=== PATIENT | male | born 1955 | race Caucasian/White ===

== ENCOUNTER 2021-08-15 17:11 | Inpatient (IN) | payer MEDICARE, SELFPAY ==
[2021-08-15] VITALS (8 sets, daily range): BP systolic 137–168; BP diastolic 65–77; PULSE 64–74; RESP 15–20; TEMP 36.9–37.2; O2SAT 87–94; BMI 33.2; BMI 39.6
--- NOTE | 2021-08-15 17:14 | NURSING ---
NO OLD EKGS
--- NOTE | 2021-08-15 17:32 | EKG12_ITS ---
Test Reason : CP Blood Pressure : / mmHG Vent. Rate : 073 BPM Atrial Rate : 073 BPM P-R Int : 146 ms QRS Dur : 096 ms QT Int : 394 ms P-R-T Axes : 047 094 037 degrees QTc Int : 434 ms Normal sinus rhythm Normal ECG Confirmed by ERNA ZENG MD ([id number]), web content editor DOYLE MULLIGAN ([id number]) on 08/16/2021 11:46:58 AM Referred By: JANET Confirmed By:ERNA ZENG MD
--- NOTE | 2021-08-15 17:35 | EDS_ITS ---
HPI <NEGRO Redd - Last Filed: 08/15/21 19:27> History of Present Illness Chief Complaint: Chest Pain Narrative Narrative: Patient is a 65-year-old male with history of COPD, CAD who smokes 1 pack/day presents to the emergency department with chest tightness, difficulty breathing. Patient states that he was outside all day today, and throughout the day, he developed midsternal chest pressure, he states that he felt short of breath, had bilateral arm tingling and is here for evaluation. Patient states that he uses an inhaler when he feels like this however did not work today. Patient denies any fevers or chills. Patient is vaccinated for COVID-19 as well as influenza. Patient denies any recent fever or chills. Patient denies any history of PE, DVT, denies any recent trips. PFSH <NEGRO Redd - Last Filed: 08/15/21 19:27> PFSH Medical History COPD (chronic obstructive pulmonary disease) Coronary artery disease CPAP (continuous positive airway pressure) dependence Sleep apnea Smoker Home Medications albuterol sulfate 2 puff INHALATION Q4H PRN PRN 08/15/21 [History Last Taken 08/15/21] [id number] [Trelegy Ellipta] 1 ea INHALATION DAILY 08/15/21 [History Last Taken 08/15/21] Allergy/AdvReac Type Severity Reaction Status Date / Time No Known Allergies Allergy Verified 08/15/21 17:12 Family History Other Diabetes Heart disease Surgical History History of coronary artery stent placement Social History Smoking Status: Heavy Smoker (>10/day) ROS <NEGRO Redd - Last Filed: 08/15/21 19:27> ROS ED ROS Narrative Constitutional: Negative for fever, chills, weight loss, weakness Eyes: Negative for vision loss, vision change, double vision ENT: Negative for any sore throat, ear pain, congestion Cardiovascular: Negative for any palpitations, racing heartbeat. Positive for chest pain, chest pressure Respiratory: Negative for any cough, sputum production, hemoptysis.positive for shortness of breath, shortness of breath on exertion, orthopnea Gastrointestinal: Negative for any abdominal pain, nausea, vomiting, diarrhea, constipation, blood in stool, blood in vomit : Negative for any urinary frequency, incontinence, dysuria, retention, blood in urine Muscle skeletal: Negative for any muscle joint pain, stiffness, myalgias, arthralgias, neck pain, back pain Neurological: Negative for any headache, dizziness, syncope, numbness or tingling Skin: Negative for any rashes, lumps, itching, abrasions, lacerations Psychiatric: Negative for any depression, anxiety, stress, suicidal ideation, homicidal ideation Hematologic: Negative for any easy bruising, excessive bruising, easy bleeding Allergies: Negative for any eczema, hives, rash EXAM <NEGRO Redd - Last Filed: 08/15/21 19:27> Physical Exam Narrative Exam Narrative: Vital signs reviewed. Patient on room air is 87%, patient is tachypneic, patient does appear to be in mild respiratory distress. HEET: Head normocephalic atraumatic, TMs clear bilaterally. Posterior pharynx is clear, moist mucous membranes. Nares clear bilaterally. Neck: Supple with no lymphadenopathy or tenderness. No signs of meningismus, negative jolt sign. Cardiac: Regular rate and rhythm no murmurs gallops or rubs, equal peripheral pulses bilaterally. Respiratory: Lungs show bilateral expiratory wheezes, diminished breath sounds in the bases.. No chest tenderness. Abdomen: Soft, nontender, nondistended. No abdominal bruit or pulsatile masses. No hepatosplenomegaly Extremities: Patient has bilateral lower leg edema however he states this is chronic., no signs of gross trauma or deformity. Active full range of motion of all extremities. Neuro: Cranial nerves II through XII intact, no focal neurological deficits. Skin: Clean dry and intact with no rash, purpura, petechiae, vesicles or pustules. Backslash flank: No CVA tenderness, no midline spinal tenderness, no deformity. Psych: Normal mood and affect. No SI, HI or acute psychosis. Const Vital Signs: 08/15/21 17:13 08/15/21 17:26 08/15/21 17:28 Temperature 98.9 F Temperature Source Temporal Pulse Rate 72 Respiratory Rate 20 H Respiratory Effort Short of Breath Respiratory Pattern Blood Pressure 168/76 H Blood Pressure Mean 106 Pulse Ox 88 92 Oxygen Delivery Method Room Air Nasal Cannula Oxygen Flow Rate (L/min) 2 08/15/21 17:30 08/15/21 17:40 Temperature Temperature Source Pulse Rate 74 Respiratory Rate 15 Respiratory Effort Respiratory Pattern Normal Blood Pressure Blood Pressure Mean Pulse Ox 90 Oxygen Delivery Method Nasal Cannula Oxygen Flow Rate (L/min) 3 Positive well nourished, well developed and obese General Appearance ED: well developed Nutritional Appearance: obese <Ulysses Collazo MD - Last Filed: 08/15/21 22:14> Physical Exam Const Vital Signs: 08/15/21 17:13 08/15/21 17:26 08/15/21 17:28 Temperature 98.9 F Temperature Source Temporal Pulse Rate 72 Respiratory Rate 20 H Respiratory Effort Short of Breath Respiratory Pattern Blood Pressure 168/76 H Blood Pressure Mean 106 Pulse Ox 88 92 Oxygen Delivery Method Room Air Nasal Cannula Oxygen Flow Rate (L/min) 2 08/15/21 17:30 08/15/21 17:40 Temperature Temperature Source Pulse Rate 74 Respiratory Rate 15 Respiratory Effort Respiratory Pattern Normal Blood Pressure Blood Pressure Mean Pulse Ox 90 Oxygen Delivery Method Nasal Cannula Oxygen Flow Rate (L/min) 3 MDM <NEGRO Redd - Last Filed: 08/15/21 19:27> MDM MDM Narrative Medical decision making narrative: Patient presents the emergency department in mild respiratory distress, patient is tachypneic, 86% on room air. Patient physical examination is consistent with a COPD exacerbation. Patient did receive a cardiac/pulmonary work-up.Patient's CBC was unremarkable, chemistries were unremarkable, patient's proBNP was negative at 64 with a negative troponin of 14. Patient is negative for any influenza or COVID-19. Twelve-lead EKG was unremarkable. Not believe the patient is having acute cardiac event. Patient x-ray shows mild vascular congestion with interstitial edema, asymmetric parenchymal consolidation of the medial right lower lobe atelectasis versus localized edema versus pneumonia. Due to the patient not having any elevated white count, fever, cough, I do not believe that this is pneumonia. I believe the patient is suffering from a COPD exacerbation, hypoxia. Patient did receive IV steroids as well as aerosol treatments. Patient states that this helped, patient states that is easier for breathing. Patient at rest however still on room air is under 88%. Patient is tolerating 3 L of nasal cannula well. Patient will need to be admitted to hospital for COPD exacerbation Lab Data Attestation: I reviewed the patient's lab results. Labs: Laboratory Results - last 24 hr 08/15/21 08/15/21 08/15/21 17:40 17:40 17:40 WBC 9.3 RBC 5.89 Hgb 17.7 H Hct 55.7 H MCV 94.6 H MCH 30.1 MCHC 31.8 L RDW Std Deviation 49.1 H RDW Coeff of Fuentes 14.1 Plt Count 192 MPV 9.1 Immature Gran % (Auto) 0.400 Neut % (Auto) 70.8 H Lymph % (Auto) 16.4 L [place] % (Auto) 8.9 Eos % (Auto) 3.3 Baso % (Auto) 0.2 Absolute Neuts (auto) 6.6 Absolute Lymphs (auto) 1.53 Nucleated RBC % 0 Sodium 135 L Potassium 4.2 Chloride 102 Carbon Dioxide 29.0 Anion Gap 4 L BUN 12 Creatinine 0.92 Estim Creat Clear Calc 78.98 Est GFR (MDRD) Af Amer 105 Est GFR (MDRD) Non-Af 87 BUN/Creatinine Ratio 13.0 Glucose 102 Calcium 9.1 Troponin I High Sens 14 B-Natriuretic Peptide 64.8 Radiography Chest X-Ray - ED: 1 View Diagnostic Testing: Clinical Impression(s) from Imaging Studies Chest X-Ray 08/15/21 17:55 IMPRESSION: 1. Mild vascular congestion with interstitial edema, possible CHF. 2. Asymmetric parenchymal consolidation of the medial right lower lobe, atelectasis versus localized edema versus pneumonia. Electronically Signed: Gil Saunders MD ([place]) at 18:17 EDT , EKG Normal sinus rhythm: Comments: Normal sinus rhythm, rate of 73 bpm, MD interval 146 ms, QRS duration 96 ms, no acute ST elevation, no acute infarct noted. <Ulysses Collazo MD - Last Filed: 08/15/21 22:14> [facility] MDM Narrative Medical decision making narrative: I have personally performed a face to face assessment of the patient and have reviewed the RAFAEL Note. I performed a substantive portion of the visit including all aspects of the following. My mahoney findings include: History is [chest tightness with shortness of breath, history of COPD, smoker] Exam is [afebrile. Vital signs noted. Regular rate and rhythm. Diminished breath sounds bilateral bases with occasional expiratory wheeze.] Medical Decision Making [aerosol treatments, steroids, check labs. Chest x-ray interpreted by myself shows COPD. Given hypoxia, admit.] Other additions or changes: [None] Lab Data Attestation: I reviewed the patient's lab results. Labs: Laboratory Results - last 24 hr 08/15/21 08/15/21 08/15/21 17:40 17:40 17:40 WBC 9.3 RBC 5.89 Hgb 17.7 H Hct 55.7 H MCV 94.6 H MCH 30.1 MCHC 31.8 L RDW Std Deviation 49.1 H RDW Coeff of Fuentes 14.1 Plt Count 192 MPV 9.1 Immature Gran % (Auto) 0.400 Neut % (Auto) 70.8 H Lymph % (Auto) 16.4 L [place] % (Auto) 8.9 Eos % (Auto) 3.3 Baso % (Auto) 0.2 Absolute Neuts (auto) 6.6 Absolute Lymphs (auto) 1.53 Nucleated RBC % 0 Sodium 135 L Potassium 4.2 Chloride 102 Carbon Dioxide 29.0 Anion Gap 4 L BUN 12 Creatinine 0.92 Estim Creat Clear Calc 78.98 Est GFR (MDRD) Af Amer 105 Est GFR (MDRD) Non-Af 87 BUN/Creatinine Ratio 13.0 Glucose 102 Calcium 9.1 Troponin I High Sens 14 B-Natriuretic Peptide 64.8 Radiography Diagnostic Testing: Clinical Impression(s) from Imaging Studies Chest X-Ray 08/15/21 17:55 IMPRESSION: 1. Mild vascular congestion with interstitial edema, possible CHF. 2. Asymmetric parenchymal consolidation of the medial right lower lobe, atelectasis versus localized edema versus pneumonia. Electronically Signed: Gil Saunders MD ([place]) at 18:17 EDT , Discharge Plan Dx/Rx/DC Orders Clinical Impression: Hypoxia, Acute exacerbation of chronic obstructive pulmonary disease Disposition Disposition: Acute Care Hospital [facility] Discharge Date/Time: 08/15/21 20:18
[2021-08-15] MEDS: Ipratropium/Albuterol Sulfate 3 ML AMPUL.NEB INHALATION (17:37)
[2021-08-15] MEDS: Albuterol 2.5 MG/3 ML VIAL.NEB. INHALATION ×2 (17:38)
[2021-08-15] MEDS: MethylPREDNISolone 125 MG/2 ML Vial IV (17:47)
[2021-08-15 17:49] LABS: Absolute Lymphocyte Count 1.53 X10^3/uL (0.83-4.51); Absolute Neutrophil Count 6.6 X10^3/uL (2.0-7.7); Basophil# 0.02 X10^3/uL; Basophil% 0.2 % (0-1); Eosinophil# 0.31 X10^3/uL; Eosinophils% 3.3 % (0-5); Hemoglobin 17.7 g/dL (13.0-16.5); Lymphocyte # 1.53 X10^3/ul (0.83-4.51); Lymphocyte % 16.4 % (19-41); Mean Corp Hgb Conc 31.8 g/dL (32-36); Mean Corpuscular Hgb 30.1 pg (27.0-32.0); Mean Corpuscular Volume 94.6 fL (80-94); Mean Platelet Vol. 9.1 fl (6.2-12.0); Monocyte# 0.83 X10^3/uL; Monocyte% 8.9 % (0-10); NRBC Flagged by Analyzer 0 % (0-5); Neutrophil # 6.58 X10^3/uL (2.7-7.7); Neutrophil % 70.8 % (47-70); Platelet Count 192 K/mm3 (150-450); RBC Distribution Width CV 14.1 % (11.6-14.6); RBC Distribution Width SD 49.1 fl (35.1-43.9); Red Blood Count 5.89 M/mm3 (4.6-6.2); White Blood Count 9.3 K/mm3 (4.4-11.0)
--- NOTE | 2021-08-15 17:55 | RAD_ITS ---
STUDY: X-RAY CHEST REASON FOR EXAM: Male, 65 years old. shortness of breath TECHNIQUE: AP COMPARISON: None. FINDINGS: Coarsened interstitial lung markings bilaterally asymmetric parenchymal opacity of the medial right lower lobe. There is no demonstrated pleural abnormality. There is mild cardiac enlargement. Normal mediastinum and liyah. Mild central pulmonary vascular congestion. Normal visualized aortic arch and descending thoracic aorta. No acute bony process. There is no demonstrated abnormality of the visualized soft tissue structures of the upper abdomen. RAD/Chest 1 View (Portable) IMPRESSION: 1. Mild vascular congestion with interstitial edema, possible CHF. 2. Asymmetric parenchymal consolidation of the medial right lower lobe, atelectasis versus localized edema versus pneumonia. Electronically Signed: Gil Saunders MD ([place]oks) at 18:17 EDT ,
[2021-08-15 18:04] LABS: Anion Gap 4 (5-15); BUN 12 mg/dL (7-18); Calcium,Total 9.1 mg/dL (8.5-10.1); Chloride 102 mmol/L (98-107); Creatinine, Serum 0.92 mg/dL (0.70-1.30); EST Glomerular Filtration Rate 87 mL/min (>60); Est Glom Filt Rate - Afr Amer 105 mL/min (>60); Estimated Creatinine Clearance 78.98 ml/min; Glucose 102 mg/dL (74-106); Potassium 4.2 mmol/L (3.5-5.1); Sodium Level 135 mmol/L (136-145); Troponin-I HS 14 pg/mL (3.0-78.0)
[2021-08-15 18:27] LABS: Hematocrit 55.7 % (40-54)
[2021-08-15 18:50] LABS: BNP,B-Type NATRIURETIC PEPTIDE 64.8 pg/mL (0-100)
--- NOTE | 2021-08-15 19:34 | PCM.HP.STD ---
HPI - General General Date of Admission: 08/15/21 HPI Narrative KHURRAM MEJIA, is a 65 M with a significant history of CAD status post 3 stents placed about 4 years ago; COPD; obstructive sleep apnea on home CPAP; tobacco abuse who presents to the emergency department with 2-day history of progressive worsening shortness of breath. His shortness of breath increased with exertion. Associated with symptom is some wheezes; and productive cough. His productive cough is occasionally clear and occasionally it is yellow. His secretions are thicker than baseline. He reports some chest pain with coughing. Further he reports bilateral upper extremities numbness. He was outside all day on the day of presentation and he thinks that might have contributed to his symptoms. He reports and orthopnea and proximal nocturnal dyspnea. PFSH Medical History COPD (chronic obstructive pulmonary disease) Coronary artery disease CPAP (continuous positive airway pressure) dependence Sleep apnea Smoker Home Medications albuterol sulfate 2 puff INHALATION Q4H PRN PRN 08/15/21 [History Last Taken 08/15/21] [id number] [Trelegy Ellipta] 1 ea INHALATION DAILY 08/15/21 [History Last Taken 08/15/21] Allergy/AdvReac Type Severity Reaction Status Date / Time No Known Allergies Allergy Verified 08/15/21 17:12 Family History Other Diabetes Heart disease Surgical History History of coronary artery stent placement Social History Smoking Status: Heavy Smoker (>10/day) ROS ROS Narrative Constitutional: Denies fever, chills, anorexia and change in weight Eyes: Denies blurry vision, change in eye color, change in vision, discharge from eye(s), double vision, erythema, eye pain, loss of vision or other HEENT: Denies abnormal hearing, dysphagia, ear pain, epistaxis, headache(s), hearing loss, nasal congestion, nasal discharge, post nasal drip, sinus pressure, sore throat or other Cardiovascular: Reports chest pain with coughing. Denies palpitations. Reports orthopnea and paroxysmal nocturnal dyspnea Respiratory/Chest: Report cough, excessive phlegm production, shortness of breath with exertion and wheezing Gastrointestinal: Denies abdominal pain, coffee ground emesis, constipation, diarrhea, dyspepsia, hematemesis, hematochezia, loose stools, melena, nausea, vomiting or other Genitourinary: Denies burning urination, difficulty urinating, dysuria, hematuria, nocturia, urinary frequency, urinary hesitancy, urinary incontinence, urinary urgency or other Musculoskeletal: Denies arthralgias, back pain, joint pain, joint stiffness, joint swelling, myalgias, neck pain or other Neurologic: Denies abnormal gait, abnormal speech, confusion, disequilibrium, dizziness, focal weakness, numbness, paresthesias, seizure-like activity, seizures, syncope, tingling, tremor(s) or other Psychiatric: Denies anxiety, depression, homicidal ideation, suicidal ideation or other Endocrinology: Denies change in body appearance, cold intolerance, excessive sweating, heat intolerance, polydipsia, polyuria or other Hematologic/Lymphatic: Denies anemia, easy bleeding, easy bruising, lymphadenopathy or other Integumentary: Denies rashes Allergic/Immunologic: Denies rhinitis, hives, eczema, or other Vital Signs Vital Signs Vital Signs: 08/15/21 17:13 08/15/21 17:26 08/15/21 17:28 Temperature 98.9 F Temperature Source Temporal Pulse Rate 72 Respiratory Rate 20 H Respiratory Effort Short of Breath Respiratory Pattern Blood Pressure 168/76 H Blood Pressure Mean 106 Pulse Ox 88 92 Oxygen Delivery Method Room Air Nasal Cannula Oxygen Flow Rate (L/min) 2 08/15/21 17:30 08/15/21 17:40 08/15/21 19:26 Temperature 98.6 F Temperature Source Temporal Pulse Rate 74 64 Respiratory Rate 15 19 H Respiratory Effort Respiratory Pattern Normal Blood Pressure 147/77 H Blood Pressure Mean 100 Pulse Ox 90 91 Oxygen Delivery Method Nasal Cannula Nasal Cannula Oxygen Flow Rate (L/min) 3 3 Weight Weight: 102.058 kg Body Mass Index (BMI) 33.2 Physical Exam Narrative Physical exam: General: Well-nourished, well-developed. Head: Normocephalic, atraumatic, no tenderness Eyes: Vision is grossly intact. EOMI ENT, no trauma, moist mucous membranes, no rhinorrhea Neck: Nontender, full range of motion, no spinal tenderness, deformities, step-off CVS: Regular rate and rhythm. S1-S2 present. No murmur, gallop or rub. Respiratory : Increased work of breathing. Diminished. Abdomen: Soft, nontender, nondistended, normal bowel sounds, no masses : Deferred Back: Nontender, no CVA tenderness, no midline spinal tenderness, deformities, step-offs Extremities: Bilateral feet edema. Nontender full range of motion, no trauma Skin: Normal color, no trauma, abrasions Neuro: Alert, oriented, cranial nerves II through XII grossly intact. Psychiatry: Normal mood. Normal affect. Not depressed. Not anxious. Results Lab / Micro Data Result Diagrams: 08/15/21 17:40 08/15/21 17:40 Labs: Laboratory Results - last 24 hr 08/15/21 17:40: WBC 9.3, RBC 5.89, Hgb 17.7 H, Hct 55.7 H, MCV 94.6 H, MCH 30.1, MCHC 31.8 L, RDW Std Deviation 49.1 H, RDW Coeff of Fuentes 14.1, Plt Count 192, MPV 9.1, Immature Gran % (Auto) 0.400, Neut % (Auto) 70.8 H, Lymph % (Auto) 16.4 L, [place] % (Auto) 8.9, Eos % (Auto) 3.3, Baso % (Auto) 0.2, Absolute Neuts (auto) 6.6, Absolute Lymphs (auto) 1.53, Nucleated RBC % 0 08/15/21 17:40: Sodium 135 L, Potassium 4.2, Chloride 102, Carbon Dioxide 29.0, Anion Gap 4 L, BUN 12, Creatinine 0.92, Estim Creat Clear Calc 78.98, Est GFR (MDRD) Af Amer 105, Est GFR (MDRD) Non-Af 87, BUN/Creatinine Ratio 13.0, Glucose 102, Calcium 9.1, Troponin I High Sens 14 08/15/21 17:40: B-Natriuretic Peptide 64.8 Micro: Microbiology 08/15/21 17:50 Nasal Secretion SARS-CoV-2 & FLU Antigen (Rapid) - Final Radiology Impression Chest X-Ray 08/15/21 17:55 IMPRESSION: 1. Mild vascular congestion with interstitial edema, possible CHF. 2. Asymmetric parenchymal consolidation of the medial right lower lobe, atelectasis versus localized edema versus pneumonia. Electronically Signed: Gil Saunders MD ([place]) at 18:17 EDT , Assessment & Plan Assessment/Plan (1) Acute exacerbation of chronic obstructive pulmonary disease: (2) Hypoxia: PLAN: Acute excerbation of COPD CXR was visualized and independent interpreted. Chest x-ray with some vascular congestion and creatinine/consolidation of moderate right lower lobe. I agree with radiologist interpretation. Review of labs showed normal BNP of 64.8. EKG independently reviewed showed sinus rhythm with no ST or T wave abnormalities On home Trelegy. Scheduled DuoNeb and as needed albuterol ordered. Solu-Medrol IV received at emergency department and continued. Azithromycin p.o. Continue supplemental oxygenation started from the ED CBC showed normal white counts; and with erythrocytosis. Erythrocytosis likely secondary to history of hypoxia Monitor BMP and CBC Initial high sensitive troponin was negative. Trend troponin. DVT prophylaxis: Subcutaneous Lovenox ordered. Charges/Coding Visit Charges Inpatient E&M: 23711 Init Hosp L3
[2021-08-15] MEDS: Azithromycin 250 MG Tablet 500 MG PO (21:59)
[2021-08-15 22:31] LABS: Troponin-I HS 8 pg/mL (3.0-78.0)
[2021-08-16] VITALS (12 sets, daily range): BP systolic 120–143; BP diastolic 60–67; PULSE 61–103; RESP 18–20; TEMP 36.5–37.1; O2SAT 88–94
[2021-08-16 00:31] LABS: Troponin-I HS 9 pg/mL (3.0-78.0)
[2021-08-16 04:09] LABS: Absolute Lymphocyte Count 0.47 X10^3/uL (0.83-4.51); Absolute Neutrophil Count 4.7 X10^3/uL (2.0-7.7); Hemoglobin 17.6 g/dL (13.0-16.5); Lymphocyte # 0.47 X10^3/ul (0.83-4.51); Lymphocyte % 9.1 % (19-41); Mean Corp Hgb Conc 31.4 g/dL (32-36); Mean Corpuscular Hgb 30.2 pg (27.0-32.0); Mean Corpuscular Volume 96.2 fL (80-94); Mean Platelet Vol. 9.3 fl (6.2-12.0); Monocyte# 0.03 X10^3/uL; Monocyte% 0.6 % (0-10); NRBC Flagged by Analyzer 0 % (0-5); Neutrophil # 4.68 X10^3/uL (2.7-7.7); Neutrophil % 90.1 % (47-70); POSITIVE DIFFERENTIAL YES; Platelet Count 172 K/mm3 (150-450); RBC Distribution Width CV 14.4 % (11.6-14.6); RBC Distribution Width SD 51.2 fl (35.1-43.9); Red Blood Count 5.83 M/mm3 (4.6-6.2); White Blood Count 5.2 K/mm3 (4.4-11.0)
[2021-08-16 04:14] LABS: Differential Indicated SCAN CRITERIA MET; Hematocrit 56.1 % (40-54)
[2021-08-16 04:33] LABS: Troponin-I HS 10 pg/mL (3.0-78.0)
[2021-08-16 04:45] LABS: Anion Gap 6 (5-15); BUN 17 mg/dL (7-18); BUN/Creat Ratio 18.1 RATIO (10-20); Chloride 103 mmol/L (98-107); Creatinine, Serum 0.94 mg/dL (0.70-1.30); EST Glomerular Filtration Rate 85 mL/min (>60); Est Glom Filt Rate - Afr Amer 103 mL/min (>60); Glucose 230 mg/dL (74-106); Potassium 4.5 mmol/L (3.5-5.1); Sodium Level 137 mmol/L (136-145)
[2021-08-16 05:10] LABS: Differential Comment SCANNED
[2021-08-16] MEDS: Ipratropium/Albuterol Sulfate 3 ML AMPUL.NEB INHALATION ×4 (06:50→19:54)
[2021-08-16] MEDS: Azithromycin 250 MG Tablet 500 MG PO (10:24)
[2021-08-16] MEDS: Enoxaparin 40 MG/0.4 ML Syringe SC (10:24)
[2021-08-16] MEDS: Aspirin 81 MG TAB.CHEW PO (10:24)
--- NOTE | 2021-08-16 10:37 | PN.HOSP_ITS ---
Subjective Subjective Follow-up on Acute COPD exacerbation: Patient was seen and examined. Patient complains of feeling itchy around the arms. This happens to be at the areas where blood pressure cuff was applied. Unclear if it is related to some cleaning agents over the blood pressure cuff. This is on both arms. He has developed some wheals over his back and bilateral upper extremity Objective Data Objective Data Vital Signs: Vital Signs Temp Pulse Resp BP Pulse Ox 98.8 F 61 20 H 143/67 H 94 08/16/21 03:15 08/16/21 08:02 08/16/21 06:50 08/16/21 03:15 08/16/21 06:50 Oxygen Flow Rate (L/min) 3 Oxygen Delivery Method Nasal Cannula Weight: 121.8 kg Body Mass Index (BMI) 39.6 Intake & Output: Intake and Output for Last 24 Hours 08/14/21 08/15/21 08/16/21 23:59 23:59 23:59 Intake Total 300 / 300 Balance 300 / 300 Lab / Micro Data Result Diagrams: 08/16/21 03:42 08/16/21 03:42 Labs: Laboratory Results - last 24 hr 08/15/21 17:40: WBC 9.3, RBC 5.89, Hgb 17.7 H, Hct 55.7 H, MCV 94.6 H, MCH 30.1, MCHC 31.8 L, RDW Std Deviation 49.1 H, RDW Coeff of Fuentes 14.1, Plt Count 192, MPV 9.1, Immature Gran % (Auto) 0.400, Neut % (Auto) 70.8 H, Lymph % (Auto) 16.4 L, [place] % (Auto) 8.9, Eos % (Auto) 3.3, Baso % (Auto) 0.2, Absolute Neuts (auto) 6. 6, Absolute Lymphs (auto) 1.53, Nucleated RBC % 0 08/15/21 17:40: Sodium 135 L, Potassium 4.2, Chloride 102, Carbon Dioxide 29.0, Anion Gap 4 L, BUN 12, Creatinine 0.92, Estim Creat Clear Calc 78.98, Est GFR (MDRD) Af Amer 105, Est GFR (MDRD) Non-Af 87, BUN/Creatinine Ratio 13.0, Glucose 102, Calcium 9.1, Troponin I High Sens 14 08/15/21 17:40: B-Natriuretic Peptide 64.8 08/15/21 21:35: Troponin I High Sens 8 08/15/21 23:49: Troponin I High Sens 9 08/16/21 03:42: WBC 5.2, RBC 5.83, Hgb 17.6 H, Hct 56.1 H, MCV 96.2 H, MCH 30.2, MCHC 31.4 L, RDW Std Deviation 51.2 H, RDW Coeff of Fuentes 14.4, Plt Count 172, MPV 9.3, Immature Gran % (Auto) 0.200, Neut % (Auto) 90.1 H, Lymph % (Auto) 9.1 L, [place] % (Auto) 0.6, Eos % (Auto) 0.0, Baso % (Auto) 0.0, Absolute Neuts (auto) 4.7, Absolute Lymphs (auto) 0.47 L, Nucleated RBC % 0, Differential Comment SCANNED 08/16/21 03:42: Sodium 137, Potassium 4.5, Chloride 103, Carbon Dioxide 28.0, Anion Gap 6, BUN 17, Creatinine 0.94, Estim Creat Clear Calc 77.30, Est GFR (MDRD) Af Amer 103, Est GFR (MDRD) Non-Af 85, BUN/Creatinine Ratio 18.1, Glucose 230 H, Calcium 9.0 08/16/21 03:42: Troponin I High Sens 10 Micro: Microbiology 08/15/21 17:50 Nasal Secretion SARS-CoV-2 & FLU Antigen (Rapid) - Final Radiography Diagnostic Testing: Radiology Impression Chest X-Ray 08/15/21 17:55 IMPRESSION: 1. Mild vascular congestion with interstitial edema, possible CHF. 2. Asymmetric parenchymal consolidation of the medial right lower lobe, atelectasis versus localized edema versus pneumonia. Electronically Signed: Gil Saunders MD ([place]) at 18:17 EDT , Physical Exam Narrative General: Alert, Oriented x3, cooperative, on 3L oxygen HEENT: Atraumatic, PERRLA, EOMI, Normocephalic Oral: Moist Mucosa Neck: Supple Lungs: Diminished to auscultation Cardiovascular: HS I +II, no murmurs Abdomen: Bowel Sounds Present, Soft, Non Tender, Non-Distended, No Hepato- splenomegaly Extremities: No edema Skin: No rashes Neurological: Cranial nerves II-XII grossly intact, Neuro grossly intact Psych/Mental Status: Normal Affect, Appropriate Assessment & Plan Assessment/Plan (1) Acute exacerbation of chronic obstructive pulmonary disease: (2) Hypoxia: PLAN: 1. Acute hypoxia secondary to Acute exacerbation of COPD/probable Acute CHF Patient is on 3 L of oxygen, will continue treatment for the above Chest x-ray showed mild vascular congestion with interstitial and edema, asymmetric parenchymal consolidation of the medial right lower lobe Continue on breathing treatment, IV Solu-Medrol, Lasix, azithromycin Wean off oxygen 2. Acute allergic reaction, unclear inciting agents, Will give Benadryl, hydrocortisone cream, continue Solu-Medrol 3. CAD s/p stents, continue on aspirin, not on statin 4. YON on CPAP 5. Nicotine dependence, on replacement 6. DVT prophylaxis -Lovenox SC. Charges/Coding Visit Charges Inpatient E&M: 78972 Subs Hosp L2
--- NOTE | 2021-08-16 11:00 | CASEMGMT ---
RN JEFFERY COMMUNICATION EQUIPMENT MECHANIC CM to room to meet with patient for initial transition planning/care coordination assessment. JA GIL introduced self and role at [facility]. Pt voices understanding and consents to assessment at this time. Pt sitting up in chair in room in no distress at this time. Pt is A/O at this time and answers all questions appropriately. Care providers, pharmacy, and demographics verified/updated at this time. PCP: Dr Lopez Specialists: Dr Orozco @ [facility]/[place]--cardiology Preferred Pharmacy: [facility] Insurance: [facility] Prescription Benefit: Yes Living Will/HPOA: Has both LW and HPOA, who is his , Emely LNOK: , Emely. 3 living adult children. Pt had another son, but he this past year from [place]. Living Arrangements: Lives w/ and 3 grandchildren (ages 16, 16, and 5) who they have full custody of and they are raising. They live in a one-story home w/6 steps to enter w/rails on one side. Pt states the stairs are difficult but he is able to do them. assists pt w/ADL's (showering and dressing) at times and does most home mgmt tasks. Pt states he often does outside work. Transportation: Pt states drives self and states no transportation concerns at this time. also drives. DME: States has the following DME: rails/grab bars, hand held shower, walker, W/C, hospital bed, and crutches. Pt states he uses the crutches most of the time. Pt also has a pulse ox, CPAP (states got it somewhere in [place]--does not remember name of co). He does not have home O2. Pt was provided with list of DME providers. He states he has no preference. . Pt states no need for further DME at this time. ETOH/Nicotine. Pt states he does not drink. He states he has smoked for about 50 yrs. He was smoking 3 PPD up until about 5/[address] Lopez placed him on pill to help and he is currently down to ~ 1 PPD. He is interested in further information on smoking cessation. Fabrice from CPS made aware. HHC/SNF: No hx of either. Pt wishes to return home and denies wanting HHC. Pt made aware, if he decides he would like HHC in the future, to contact his PCP. He voices understanding. Pt wishes to return home and states has no concerns with going home at time of discharge. CM to follow for home oxygen needs and any further discharge planning/needs. Pt voices no further concerns/needs at this time. Advised pt to ask for CM if any further questions/concerns/needs arise. Voices understanding. PLAN: Home w/spousal support and discharge plans in place. Follow for possible need of Home O2. Clarissa FLORESN RN CM
[2021-08-16] MEDS: Furosemide 40 MG/4 ML Vial IV ×2 (11:07→21:05)
[2021-08-16] MEDS: 0.9% Saline Lock 10 ML Syringe IV ×3 (11:07→21:05)
[2021-08-16] MEDS: DiphenhydrAMINE 25 MG Capsule PO (11:07)
--- NOTE | 2021-08-16 12:03 | CASEMGMT ---
Referred pt to Patient Link as he does not want HHC.
--- NOTE | 2021-08-16 13:06 | ECHOCS_ITS ---
Reason For Study: Dyspnea/SOB Procedure This was a 2D Doppler, Color Flow transthoracic echocardiogram. The study was technically difficult. Contrast injection was performed. Exam performed portable in patient room. Left Ventricle Based upon the 2D echocardiographic and contrast enhanced images obtained there appears to be grossly normal left ventricular size, wall motion, and systolic function. The estimated ejection fraction is 65 %. Diastolic function is indeterminate. Right Ventricle Based upon the 2D echocardiographic images obtained there appears to be grossly normal right ventricular size and systolic function. Atria The left atrium is mildly enlarged. Normal right atrium. No doppler evidence for ASD. Mitral Valve There is no mitral annular calcification. Normal mitral valve. Trivial mitral valve insufficiency. Tricuspid Valve Normal tricuspid valve. Trivial tricuspid valve insufficiency. Unable to estimate RV systolic pressure/pulmonary artery pressure due to technically difficult study. Aortic Valve The aortic valve leaflets are not well visualized, however, based upon the 2D echocardiographic images obtained there appears to be moderate focal calcification and partial restriction. Mild to moderate aortic stenosis. Pulmonic Valve The pulmonic valve is not well visualized. Great Vessels The aortic root is not well visualized. Pericardium/Pleural No pericardial effusion. Medication Diluted definity 2ml given slow IV push to enhance endocardial definition. MMode/2D Measurements & Calculations LVIDd: 5.8 cm IVSd: 1.2 cm LVOT diam: 2.0 cm LVIDs: 4.4 cm LVPWd: 1.1 cm FS: 24.4 % LVOT area: 3.2 cm2 ACS: 1.0 cm LAV(MOD-sp4): 66.0 ml LA A4 area: 23.4 cm2 LA dimension: 4.2 cm Time Measurements MV dec time: 0.28 sec Doppler Measurements & Calculations MV E max sanchez: 128.7 cm/sec Lat Peak E' Sanchez: 11.4 cm/sec Med Peak E' Sanchez: 6.0 cm/sec MV A max sanchez: 140.2 cm/sec E/E' lat: 11.3 E/E' med: 21.4 MV E/A: 0.92 MV V2 max: 154.1 cm/sec MV P1/2t max sanchez: 131.9 cm/sec Ao V2 max: 339.6 cm/sec MV max P.5 mmHg MV P1/2t: 99.4 msec Ao max P.1 mmHg MV V2 mean: 82.0 cm/sec Ao V2 mean: 230.9 cm/sec MV mean P.2 mmHg MV dec slope: 388.9 cm/sec2 Ao mean P.5 mmHg MV V2 VTI: 45.5 cm MVA(P1/2t): 2.2 cm2 Ao V2 VTI: 71.1 cm MVA(VTI): 2.2 cm2 ITALO(I,D): 1.4 cm2 ITALO(V,D): 1.2 cm2 LV V1 max: 125.5 cm/sec SV(LVOT): 101.3 ml PA V2 max: 92.5 cm/sec LV V1 max P.3 mmHg LV V1 mean P.1 mmHg LV V1 mean: 80.4 cm/sec LV V1 VTI: 31.3 cm ECHO/Echo Complete W/ Contrast Interpretation Summary The study was technically difficult. Contrast injection was performed. Based upon the 2D echocardiographic and contrast enhanced images obtained there appears to be grossly normal left ventricular size, wall motion, and systolic function. The estimated ejection fraction is 65 %. The left atrium is mildly enlarged. Trivial mitral valve insufficiency. Trivial tricuspid valve insufficiency. The aortic valve leaflets are not well visualized, however, based upon the 2D e chocardiographic images obtained there appears to be moderate focal calcification and partial re striction. Mild to moderate aortic stenosis. Unable to estimate RV systolic pressure/pulmonary artery pressure due to techni agustin difficult study. Diastolic function is indeterminate. Ordering Physician: Candice Steele Referring Physician: donnell PCP noted Performed By: Jaison Hsieh RCS
--- NOTE | 2021-08-16 14:15 | NURSING ---
Explained [facility] Patient-link program to pt and he was interested. Consent obtained for the program
[2021-08-16] MEDS: Acetaminophen 325 MG Tablet 650 MG PO (21:09)
[2021-08-17] VITALS (34 sets, daily range): BP systolic 107–165; BP diastolic 56–110; PULSE 59–154; RESP 14–20; TEMP 36.4–36.9; O2SAT 89–98
[2021-08-17] MEDS: 0.9% Saline Lock 10 ML Syringe IV ×2 (06:30→21:19)
[2021-08-17] MEDS: Furosemide 40 MG/4 ML Vial IV ×3 (06:30→21:10)
[2021-08-17 06:33] LABS: Absolute Lymphocyte Count 0.68 X10^3/uL (0.83-4.51); Absolute Neutrophil Count 14.1 X10^3/uL (2.0-7.7); Basophil# 0.02 X10^3/uL; Basophil% 0.1 % (0-1); Hematocrit 54.7 % (40-54); Hemoglobin 17.2 g/dL (13.0-16.5); Lymphocyte # 0.68 X10^3/ul (0.83-4.51); Lymphocyte % 4.3 % (19-41); Mean Corp Hgb Conc 31.4 g/dL (32-36); Mean Corpuscular Hgb 30.3 pg (27.0-32.0); Mean Corpuscular Volume 96.3 fL (80-94); Mean Platelet Vol. 9.4 fl (6.2-12.0); Monocyte# 0.78 X10^3/uL; NRBC Flagged by Analyzer 0 % (0-5); Neutrophil # 14.11 X10^3/uL (2.7-7.7); Neutrophil % 89.8 % (47-70); Platelet Count 187 K/mm3 (150-450); RBC Distribution Width CV 14.5 % (11.6-14.6); RBC Distribution Width SD 51.4 fl (35.1-43.9); Red Blood Count 5.68 M/mm3 (4.6-6.2); White Blood Count 15.7 K/mm3 (4.4-11.0)
[2021-08-17 07:02] LABS: ALB/GLOB Ratio 0.9 RATIO (0.9-2.4); AST(SGOT) 11 U/L (15-37); Albumin, Serum 3.7 g/dL (3.2-5.0); BUN 27 mg/dL (7-18); BUN/Creat Ratio 27.1 RATIO (10-20); Calcium,Total 9.3 mg/dL (8.5-10.1); EST Glomerular Filtration Rate 80 mL/min (>60); Est Glom Filt Rate - Afr Amer 97 mL/min (>60); Estimated Creatinine Clearance 72.66 ml/min; Globulin 3.9 g/dL (2.2-4.2); Glucose 157 mg/dL (74-106); Protein, Total 7.6 g/dL (6.4-8.2)
[2021-08-17 07:03] LABS: Alanine Aminotransfer ALT/SGPT 15 U/L (16-61); Alkaline Phosphatase 57 U/L (45-117); Anion Gap 5 (5-15); Chloride 99 mmol/L (98-107); Potassium 4.6 mmol/L (3.5-5.1); Sodium Level 134 mmol/L (136-145)
[2021-08-17] MEDS: Ipratropium/Albuterol Sulfate 3 ML AMPUL.NEB INHALATION ×2 (07:11→10:56)
--- NOTE | 2021-08-17 07:55 | EKG12_ITS ---
Test Reason : TACHYCARDIA Blood Pressure : / mmHG Vent. Rate : 148 BPM Atrial Rate : 163 BPM P-R Int : 000 ms QRS Dur : 088 ms QT Int : 298 ms P-R-T Axes : 000 083 013 degrees QTc Int : 467 ms Atrial fibrillation Abnormal ECG When compared with ECG of 15-AUG-2021 17:21, Atrial fibrillation has replaced Sinus rhythm Vent. rate has increased BY 75 BPM Confirmed by AZUCENA RODRIGUEZ, ERNA ([id number]), restaurant expeditor DOYLE MULLIGAN ([id number]) on 08/20/2021 6:54:43 AM Referred By: LIDIA Confirmed By:ERNA ZENG MD
--- NOTE | 2021-08-17 07:56 | NURSING ---
pt sitting in chair. had used urinal, has been sitting for approx. 5min. no signs of distress noted. no c/o chest pain. notable tachycardia 140's-150's. cps called for EKG
--- NOTE | 2021-08-17 08:02 | NURSING ---
in chair, denies any chest pain/neck pain/jaw or arm pain. denies SOB, does not feel like having any racing heart or fluttering, denies any dizziness/lightheadedness.
[2021-08-17] MEDS: Azithromycin 250 MG Tablet 500 MG PO (08:10)
[2021-08-17] MEDS: Enoxaparin 40 MG/0.4 ML Syringe SC (08:10)
[2021-08-17] MEDS: Aspirin 81 MG TAB.CHEW PO (08:10)
[2021-08-17] MEDS: Metoprolol Tartrate 5 MG/5 ML Vial IV (08:46)
--- NOTE | 2021-08-17 08:51 | PN.HOSP_ITS ---
Subjective Subjective Follow-up on Acute COPD exacerbation/acute exacerbation of heart failure with preserved EF: Patient was seen and examined. He remains on 3 L of oxygen. He has been tachycardic overnight. Patient stated that he had history of paroxysmal atrial fibrillation. Not on any rate-limiting medications. Objective Data Objective Data Vital Signs: Vital Signs Temp Pulse Resp BP Pulse Ox 97.9 F 154 H 20 H 148/110 H 93 08/17/21 07:54 08/17/21 08:48 08/17/21 07:54 08/17/21 08:48 08/17/21 07:54 Oxygen Flow Rate (L/min) 3 Oxygen Delivery Method Nasal Cannula Weight: 121.8 kg Body Mass Index (BMI) 39.6 Intake & Output: Intake and Output for Last 24 Hours 08/15/21 08/16/21 08/17/21 23:59 23:59 23:59 Intake Total 1200 / 1200 Output Total 400 / 1100 1300 / 1300 Balance 800 / 100 -1300 / -1300 Lab / Micro Data Result Diagrams: 08/17/21 05:30 08/17/21 05:30 Labs: Laboratory Results - last 24 hr 08/17/21 05:30: WBC 15.7 H, RBC 5.68, Hgb 17.2 H, Hct 54.7 H, MCV 96.3 H, MCH 30.3, MCHC 31.4 L, RDW Std Deviation 51.4 H, RDW Coeff of Fuentes 14.5, Plt Count 187, MPV 9.4, Immature Gran % (Auto) 0.800, Neut % (Auto) 89.8 H, Lymph % (Auto) 4.3 L, [place] % (Auto) 5.0, Eos % (Auto) 0.0, Baso % (Auto) 0.1, Absolute Neuts (auto) 14.1 H, Absolute Lymphs (auto) 0.68 L, Nucleated RBC % 0 08/17/21 05:30: Sodium 134 L, Potassium 4.6, Chloride 99, Carbon Dioxide 30.0, Anion Gap 5, BUN 27 H, Creatinine 1.00, Estim Creat Clear Calc 72.66, Est GFR (MDRD) Af Amer 97, Est GFR (MDRD) Non-Af 80, BUN/Creatinine Ratio 27.1 H, Glucose 157 H, Calcium 9.3, Total Bilirubin 0.20, AST 11 L, ALT 15 L, Alkaline Phosphatase 57, Total Protein 7.6, Albumin 3.7, Globulin 3.9, Albumin/Globulin Ratio 0.9 Micro: Microbiology 08/15/21 17:50 Nasal Secretion SARS-CoV-2 & FLU Antigen (Rapid) - Final Radiography Diagnostic Testing: Radiology Impression Echocardiogram 08/16/21 13:06 Interpretation Summary The study was technically difficult. Contrast injection was performed. Based upon the 2D echocardiographic and contrast enhanced images obtained there appears to be grossly normal left ventricular size, wall motion, and systolic function. The estimated ejection fraction is 65 %. The left atrium is mildly enlarged. Trivial mitral valve insufficiency. Trivial tricuspid valve insufficiency. The aortic valve leaflets are not well visualized, however, based upon the 2D echocardiographic images obtained there appears to be moderate focal calcification and partial restriction. Mild to moderate aortic stenosis. Unable to estimate RV systolic pressure/pulmonary artery pressure due to technically difficult study. Diastolic function is indeterminate. Ordering Physician: Candice Steele Referring Physician: no PCP noted Performed By: Jaison Hsieh RCS Physical Exam Narrative General: Alert, Oriented x3, cooperative, on 3L oxygen HEENT: Atraumatic, PERRLA, EOMI, Normocephalic Oral: Moist Mucosa Neck: Supple Lungs: Diminished to auscultation Cardiovascular: HS I +II, tachycardic Abdomen: Bowel Sounds Present, Soft, Non Tender, Non-Distended, No Hepato- splenomegaly Extremities: No edema Skin: No rashes Neurological: Cranial nerves II-XII grossly intact, Neuro grossly intact Psych/Mental Status: Normal Affect, Appropriate Assessment & Plan Assessment/Plan (1) Acute exacerbation of chronic obstructive pulmonary disease: (2) Hypoxia: PLAN: 1. Acute hypoxia secondary to Acute exacerbation of COPD/probable Acute exacerbation of heart failure with preserved EF , EF 65% Patient remains on 3 L of oxygen, Chest x-ray showed mild vascular congestion with interstitial and edema, asymmetric parenchymal consolidation of the medial right lower lobe Continue on breathing treatment, IV Solu-Medrol, Lasix, azithromycin Wean off oxygen 2. Acute A. fib with RVR, patient with reported history of paroxysmal atrial fibrillation 2D echo shows EF of 65%, diastolic dysfunction in the 10 minutes, mildly enlar ged left atrium, mild to moderate aortic stenosis We will give metoprolol IV 5 mg x 1 and start patient on metoprolol 50 mg p.o. twice daily We will switch to therapeutic Lovenox We will transfer to PCU if patient remains tachycardic 3. Acute allergic reaction, unclear inciting agents, improved Continue hydrocortisone cream, continue Solu-Medrol 4. CAD s/p stents, continue on aspirin, not on statin 5. YON on CPAP 6. Nicotine dependence, on replacement 7. DVT prophylaxis -Lovenox SC. Charges/Coding Visit Charges Inpatient E&M: 01387 Subs Hosp L2
[2021-08-17] MEDS: Metoprolol Tartrate 50 MG Tablet PO ×2 (09:30→15:57)
[2021-08-17 09:35] LABS: Thyroid Stim Hormone (TSH) 0.14 uIU/mL (0.358-3.74)
[2021-08-17 11:35] LABS: Free T3 2.3 pg/mL (2.18-3.98); T4 Free Direct 0.78 ng/dL (0.76-1.46)
[2021-08-17] MEDS: Enoxaparin 80 MG/0.8 ML Syringe SC (11:58)
--- NOTE | 2021-08-17 12:42 | NURSING ---
phoned spouse as listed in demographics information- no answer to phone number.
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
[2021-08-17] MEDS: Ipratropium 0.5 MG/2.5 ML SOLUTION INHALATION ×3 (13:31→23:16)
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
--- NOTE | 2021-08-17 16:56 | CM.ED ---
AMAURI called patient's , Ashley and left voice mail to call this display card writer. AMAURI updated Ave, PCU Charge. Amaya KUMAR
--- NOTE | 2021-08-17 17:01 | NURSING ---
1630-CM notified that spouse is stating she is POA and wants to make pt go to a home. He is not coming to my house. Education provided to pt's spouse, spouse stated i can make whatever happen because of the POA. and was not receptive to education. 1700- Received call from Amaya BAUGH who stated she had attempted to call spouse regarding d/c and POA; was unable to reach spouse and left message asking for call back.
--- NOTE | 2021-08-17 17:47 | CASEMGMT ---
Social Work Note AMAURI spoke with Paulina with [facility] CPS and provided CPS referral. Paulina states that she is familiar with pt's family and will call her supervisor in circuit testing. Nori Phan DEVELOPMENT VICE PRESIDENT, CITY SOLICITOR
--- NOTE | 2021-08-17 18:53 | CASEMGMT ---
Social Work Note SW in to speak with pt. SW introduced self and role at [facility]. Pt is alert and orientated, engages appropriately in conversation. Pt states he likes to be called Holt. SW informed pt that it sounds like he will be discharged home tomorrow. Pt states he is leaving tomorrow regardless as he has things he has to do. Pt states that his grandkids want to put in the garden. SW asked pt if he had any concerns with going home and pt states he has none. SW asked pt if there was any safety concerns with him going home and pt states there are none. SW asked pt how his family feels about him coming home and pt states again he is going home tomorrow. SW asked if he has a good relationship with his and pt states he does. Pt denied any additional needs or concerns at this time. Nori Phan METAL FINISH INSPECTOR, RACK MAKER
--- NOTE | 2021-08-17 19:58 | NURSING ---
Handoff report received, assumed care of pt at this time.
[2021-08-17] MEDS: Enoxaparin 120 MG/0.8 ML Syringe SC (21:15)
[2021-08-17] MEDS: Metoprolol Tartrate 100 MG Tablet PO (21:15)
[2021-08-18] VITALS (26 sets, daily range): BP systolic 98–130; BP diastolic 59–87; PULSE 48–125; RESP 14–20; TEMP 36.5–36.8; O2SAT 89–96
[2021-08-18] MEDS: Ipratropium 0.5 MG/2.5 ML SOLUTION INHALATION ×6 (03:52→23:06)
[2021-08-18] MEDS: Furosemide 40 MG/4 ML Vial IV ×2 (05:26→17:31)
[2021-08-18] MEDS: 0.9% Saline Lock 10 ML Syringe IV ×4 (05:27→23:21)
[2021-08-18 06:57] LABS: Absolute Lymphocyte Count 0.74 X10^3/uL (0.83-4.51); Absolute Neutrophil Count 12.9 X10^3/uL (2.0-7.7); Basophil# 0.01 X10^3/uL; Basophil% 0.1 % (0-1); Hemoglobin 17.7 g/dL (13.0-16.5); Lymphocyte # 0.74 X10^3/ul (0.83-4.51); Lymphocyte % 5.1 % (19-41); Mean Corp Hgb Conc 30.8 g/dL (32-36); Mean Corpuscular Hgb 30.5 pg (27.0-32.0); Mean Corpuscular Volume 98.8 fL (80-94); Mean Platelet Vol. 9.7 fl (6.2-12.0); Monocyte# 0.61 X10^3/uL; Monocyte% 4.2 % (0-10); NRBC Flagged by Analyzer 0 % (0-5); Neutrophil # 12.94 X10^3/uL (2.7-7.7); Neutrophil % 89.8 % (47-70); Platelet Count 194 K/mm3 (150-450); RBC Distribution Width CV 14.4 % (11.6-14.6); RBC Distribution Width SD 51.8 fl (35.1-43.9); Red Blood Count 5.81 M/mm3 (4.6-6.2); White Blood Count 14.4 K/mm3 (4.4-11.0)
[2021-08-18 07:12] LABS: Hematocrit 57.4 % (40-54)
[2021-08-18 07:35] LABS: ALB/GLOB Ratio 0.9 RATIO (0.9-2.4); AST(SGOT) 15 U/L (15-37); Alanine Aminotransfer ALT/SGPT 17 U/L (16-61); Albumin, Serum 3.7 g/dL (3.2-5.0); Alkaline Phosphatase 57 U/L (45-117); Anion Gap 5 (5-15); BUN 42 mg/dL (7-18); BUN/Creat Ratio 30.4 RATIO (10-20); Calcium,Total 8.8 mg/dL (8.5-10.1); Chloride 101 mmol/L (98-107); Creatinine, Serum 1.38 mg/dL (0.70-1.30); EST Glomerular Filtration Rate 55 mL/min (>60); Est Glom Filt Rate - Afr Amer 66 mL/min (>60); Estimated Creatinine Clearance 52.65 ml/min; Glucose 203 mg/dL (74-106); Potassium 4.7 mmol/L (3.5-5.1); Protein, Total 7.7 g/dL (6.4-8.2); Sodium Level 135 mmol/L (136-145)
[2021-08-18] MEDS: Aspirin 81 MG TAB.CHEW PO (07:35)
[2021-08-18] MEDS: Azithromycin 250 MG Tablet 500 MG PO (09:15)
[2021-08-18] MEDS: Metoprolol Tartrate 100 MG Tablet PO ×2 (09:15→18:37)
[2021-08-18] MEDS: Enoxaparin 120 MG/0.8 ML Syringe SC ×2 (09:16→23:16)
--- NOTE | 2021-08-18 12:35 | PN.HOSP_ITS ---
Subjective Subjective Follow-up on Acute COPD exacerbation/acute exacerbation of heart failure with preserved EF: Patient was seen and examined. He went into A. fib with RVR requiring use of Cardizem drip yesterday. Heart rate is better controlled today. He denied any chest pain. Remains on 4 L of oxygen. Objective Data Objective Data Vital Signs: Vital Signs Temp Pulse Resp BP Pulse Ox 97.7 F L 69 18 116/80 94 08/18/21 10:00 08/18/21 11:32 08/18/21 11:32 08/18/21 10:00 08/18/21 10:00 Oxygen Flow Rate (L/min) 4 Oxygen Delivery Method Nasal Cannula Weight: 121.8 kg Body Mass Index (BMI) 39.6 Intake & Output: Intake and Output for Last 24 Hours 08/16/21 08/17/21 08/18/21 23:59 23:59 23:59 Intake Total 1200 / 1200 1318.33 / 1318.58 77.34 / 77.34 Output Total 400 / 1100 3375 / 3375 400 / 400 Balance 800 / 100 -2056.67 / -2056.42 -322.66 / -322.66 Lab / Micro Data Result Diagrams: 08/18/21 06:22 08/18/21 06:22 Labs: Laboratory Results - last 24 hr 08/18/21 06:22: WBC 14.4 H, RBC 5.81, Hgb 17.7 H, Hct 57.4 H, MCV 98.8 H, MCH 30.5, MCHC 30.8 L, RDW Std Deviation 51.8 H, RDW Coeff of Fuentes 14.4, Plt Count 194, MPV 9.7, Immature Gran % (Auto) 0.800, Neut % (Auto) 89.8 H, Lymph % (Auto) 5.1 L, [place] % (Auto) 4.2, Eos % (Auto) 0.0, Baso % (Auto) 0.1, Absolute Neuts (auto) 12.9 H, Absolute Lymphs (auto) 0.74 L, Nucleated RBC % 0 08/18/21 06:22: Sodium 135 L, Potassium 4.7, Chloride 101, Carbon Dioxide 29.0, Anion Gap 5, BUN 42 H, Creatinine 1.38 H, Estim Creat Clear Calc 52.65, Est GFR (MDRD) Af Amer 66, Est GFR (MDRD) Non-Af 55 L, BUN/Creatinine Ratio 30.4 H, Glucose 203 H, Calcium 8.8, Total Bilirubin 0.20, AST 15, ALT 17, Alkaline Phosphatase 57, Total Protein 7.7, Albumin 3.7, Globulin 4.0, Albumin/Globulin Ratio 0.9 Micro: Microbiology 08/15/21 17:50 Nasal Secretion SARS-CoV-2 & FLU Antigen (Rapid) - Final Physical Exam Narrative Narrative General: Alert, Oriented x3, cooperative, on 4 L oxygen HEENT: Atraumatic, PERRLA, EOMI, Normocephalic Oral: Moist Mucosa Neck: Supple Lungs: Diminished to auscultation, wheezes++ Cardiovascular: HS I +II, tachycardic Abdomen: Bowel Sounds Present, Soft, Non Tender, Non-Distended, No Hepato- splenomegaly Extremities: No edema Skin: No rashes Neurological: Cranial nerves II-XII grossly intact, Neuro grossly intact Psych/Mental Status: Normal Affect, Appropriate Assessment & Plan Assessment/Plan (1) Acute exacerbation of chronic obstructive pulmonary disease: (2) Hypoxia: PLAN: 1. Acute hypoxia secondary to Acute exacerbation of COPD/probable Acute exacerbation of heart failure with preserved EF , EF 65% Patient is on 4 L of oxygen, Chest x-ray showed mild vascular congestion with interstitial and edema, a symmetric parenchymal consolidation of the medial right lower lobe Continue on breathing treatment, IV Solu-Medrol, Lasix, azithromycin(stop date 08/19/21) Wean off oxygen 2. Acute A. fib with RVR, patient with reported history of paroxysmal atrial fibrillation, rate controlled now. 2D echo shows EF of 65%, diastolic dysfunction in the 10 minutes, mildly enlarged left atrium, mild to moderate aortic stenosis Continue on metoprolol 100mg BID 3. Acute allergic reaction, unclear inciting agents, improved Continue hydrocortisone cream, continue Solu-Medrol 4. CAD s/p stents, continue on aspirin, not on statin 5. YON on CPAP 6. Nicotine dependence, on replacement 7. DVT prophylaxis -Lovenox SC. Charges/Coding Visit Charges Inpatient E&M: 29545 Subs Hosp L2
[2021-08-19] VITALS (22 sets, daily range): BP systolic 119–145; BP diastolic 73–101; PULSE 77–133; RESP 18–20; TEMP 36.2–37.1; O2SAT 92–95
[2021-08-19] MEDS: 0.9% Saline Lock 10 ML Syringe IV ×6 (00:49→20:59)
[2021-08-19] MEDS: dilTIAZem 25 MG/5 ML Vial 10 MG IV BOLUS (00:49)
[2021-08-19] MEDS: Ipratropium 0.5 MG/2.5 ML SOLUTION INHALATION ×6 (03:30→22:42)
[2021-08-19 06:14] LABS: Absolute Neutrophil Count 9.7 X10^3/uL (2.0-7.7); Basophil# 0.02 X10^3/uL; Basophil% 0.2 % (0-1); Hemoglobin 18.7 g/dL (13.0-16.5); Lymphocyte % 4.6 % (19-41); Mean Corp Hgb Conc 30.1 g/dL (32-36); Mean Platelet Vol. 9.5 fl (6.2-12.0); Monocyte# 0.55 X10^3/uL; Monocyte% 5.1 % (0-10); NRBC Flagged by Analyzer 0 % (0-5); Neutrophil # 9.69 X10^3/uL (2.7-7.7); Neutrophil % 89.5 % (47-70); POSITIVE COUNT YES; POSITIVE DIFFERENTIAL YES; Platelet Count 156 K/mm3 (150-450); RBC Distribution Width CV 14.3 % (11.6-14.6); RBC Distribution Width SD 55.5 fl (35.1-43.9); Red Blood Count 6.03 M/mm3 (4.6-6.2); White Blood Count 10.8 K/mm3 (4.4-11.0)
[2021-08-19 06:23] LABS: Differential Indicated SCAN CRITERIA MET; Hematocrit 62.1 % (40-54)
[2021-08-19] MEDS: Metoprolol Tartrate 5 MG/5 ML Vial IV (07:01)
[2021-08-19 07:09] LABS: Anisocytosis 1+; Macrocytosis 2+
--- NOTE | 2021-08-19 07:52 | PN.HOSP_ITS ---
Subjective Subjective Follow-up for Randall. albert RVR, COPD exacerbation Objective Data Objective Data Vital Signs: Vital Signs Temp Pulse Resp BP Pulse Ox 98.7 F 122 H 18 140/92 H 95 08/19/21 06:59 08/19/21 07:01 08/19/21 06:59 08/19/21 07:01 08/19/21 06:59 Oxygen Flow Rate (L/min) 3 Oxygen Delivery Method Nasal Cannula Weight: 268 lb 8.368 oz Body Mass Index (BMI) 39.6 Intake & Output: Intake and Output for Last 24 Hours 08/17/21 08/18/21 08/19/21 23:59 23:59 23:59 Intake Total 1318.33 / 1318.58 1547.34 / 1547.34 120 / 120 Output Total 3375 / 3375 1250 / 1250 450 / 450 Balance -2056.67 / -2056.42 297.34 / 297.34 -330 / -330 Lab / Micro Data Result Diagrams: 08/19/21 05:45 08/19/21 08:25 Labs: Laboratory Results - last 24 hr 08/19/21 05:45: WBC 10.8, RBC 6.03, Hgb 18.7 H*, Hct 62.1 H, MCV 103.0 H, MCH 31.0, MCHC 30.1 L, RDW Std Deviation 55.5 H, RDW Coeff of Fuentes 14.3, Plt Count 156, MPV 9.5, Immature Gran % (Auto) 0.600, Neut % (Auto) 89.5 H, Lymph % (Auto) 4.6 L, [place] % (Auto) 5.1, Eos % (Auto) 0.0, Baso % (Auto) 0.2, Absolute Neuts (auto) 9.7 H, Absolute Lymphs (auto) 0.50 L, Nucleated RBC % 0, Diff Path Review May foll, Anisocytosis 1+, Macrocytosis 2+ 08/19/21 05:45: Sodium Cancelled, Potassium Cancelled, Chloride Cancelled, Carbon Dioxide Cancelled, Anion Gap Cancelled, BUN Cancelled, Creatinine Cancelled, Estim Creat Clear Calc Cancelled, Est GFR (MDRD) Af Amer Cancelled, Est GFR (MDRD) Non-Af Cancelled, BUN/Creatinine Ratio Cancelled, Glucose Cancelled, Calcium Cancelled, Total Bilirubin Cancelled, AST Cancelled, ALT Cancelled, Alkaline Phosphatase Cancelled, Total Protein Cancelled, Albumin Cancelled, Globulin Cancelled, Albumin/Globulin Ratio Cancelled Micro: Microbiology 08/15/21 17:50 Nasal Secretion SARS-CoV-2 & FLU Antigen (Rapid) - Final Physical Exam Narrative Patient sitting on the chair, wheezing and short of breath. On cardiac rehabilitation specialist A. fib with heart rate in 120s. Patient also has bilateral lower extremity edema for several months. Physical exam General: Alert, Oriented x3, Cooperative, morbid obesity BMI 39.7 kg/m? HEENT: Atraumatic, PERRLA, EOMI, Normocephalic Oral: No Gingival or Mucosal Lesions/ Ulcerations Neck: Supple, No JVD, Negative Carotid Bruits Lungs: Air entry diminished in all lung owusu. Bilateral rhonchi and wheezing. Mild hypoxia. Cardiovascular: A. fib with RVR. Normal S1, Normal S2, No murmurs Abdomen: Bowel Sounds Present, Soft, Non Tender, Non-Distended : No renal angle tenderness. No suprapubic tenderness. Extremities: Bilateral lower leg pitting edema, Capillary Refill Less than 3 Seconds Skin: No rashes, No breakdown Musculoskeletal: No Tenderness to Palpation of Joints or Extremities Neurological: Cranial nerves II-XII grossly intact, DTR 2+/4 and Symmetrical, Neuro grossly intact Psych/Mental Status: Normal Affect, Appropriate Assessment & Plan Assessment/Plan (1) Acute exacerbation of chronic obstructive pulmonary disease: (2) Hypoxia: PLAN: 1. Acute hypoxia secondary to Acute exacerbation of COPD and acute exacerbation of heart failure with preserved EF , EF 65% Patient oxygenation has improved from 4 to 2 troponin. Chest x-ray shows mild vascular congestion/interstitial edema and cardiomegaly. There is no appreciable consolidation or alveolar opacity. Patient on ipratropium, Solu- Medrol, furosemide 40 mg IV twice daily and azithromycin. Incentive spirometry and Pep. 2. Paroxysmal A. fib with RVR: Medical chart on review since patient was on Cardizem drip but was not followed with oral Cardizem. Started on Cardizem 60 mg every 6 hourly. Discussed with the nursing staff. 2D echo shows EF of 65%, diastolic dysfunction in the 10 minutes, mildly enlarged left atrium, mild to moderate aortic stenosis Continue on metoprolol 100mg BID 3. Acute allergic reaction, unclear inciting agents, improved Continue hydrocortisone cream, continue Solu-Medrol 4. CAD s/p stents, continue on aspirin, not on statin 5. YON on CPAP 6. Nicotine dependence, on replacement 7. DVT prophylaxis -Lovenox SC. Charges/Coding Visit Charges Inpatient E&M: 01439 Subs Hosp L2
[2021-08-19 08:49] LABS: ALB/GLOB Ratio 0.9 RATIO (0.9-2.4); AST(SGOT) 22 U/L (15-37); Alanine Aminotransfer ALT/SGPT 33 U/L (16-61); Albumin, Serum 3.7 g/dL (3.2-5.0); Alkaline Phosphatase 57 U/L (45-117); Anion Gap 2 (5-15); BUN 50 mg/dL (7-18); BUN/Creat Ratio 41.7 RATIO (10-20); Calcium,Total 8.8 mg/dL (8.5-10.1); Chloride 101 mmol/L (98-107); EST Glomerular Filtration Rate 64 mL/min (>60); Est Glom Filt Rate - Afr Amer 78 mL/min (>60); Estimated Creatinine Clearance 60.55 ml/min; Globulin 3.9 g/dL (2.2-4.2); Glucose 212 mg/dL (74-106); Potassium 4.4 mmol/L (3.5-5.1); Protein, Total 7.6 g/dL (6.4-8.2); Sodium Level 137 mmol/L (136-145)
[2021-08-19] MEDS: Azithromycin 250 MG Tablet 500 MG PO (09:16)
[2021-08-19] MEDS: Metoprolol Tartrate 100 MG Tablet PO ×2 (09:16→21:00)
[2021-08-19] MEDS: Aspirin 81 MG TAB.CHEW PO (09:16)
[2021-08-19] MEDS: Enoxaparin 120 MG/0.8 ML Syringe SC ×2 (09:16→21:00)
[2021-08-19] MEDS: Furosemide 40 MG/4 ML Vial IV ×2 (09:16→18:06)
[2021-08-19] MEDS: dilTIAZem 25 MG/5 ML Vial 20 MG IV BOLUS (10:51)
[2021-08-19 13:28] LABS: Pathologist Review Reviewed
[2021-08-19] MEDS: dilTIAZem 60 MG Tablet PO ×2 (16:43→23:45)
--- NOTE | 2021-08-19 18:20 | NURSING ---
SECRET CODE EXPERT Anika notifies this RN that patient called out and reportedly was having hard time swallowing chicken nugget that his brought in for dinner. SECRET CODE EXPERT calls this nurse into room while assisting pt to clear his throat, upon which pt states he was able to swallow the piece of chicken. This nurse asks pt are you ok? does this normally happen? Pt states that he had thick mucous in his throat which made it hard to swallow his bite. This nurse encouraged him to use Acapella clearing instrument for his lungs. Pt given new fresh cup of water and urinal emptied by SECRET CODE EXPERT. Pt denies any further needs.
--- NOTE | 2021-08-19 18:27 | NURSING ---
Reviewed charting with Celeste Vasquez RN
[2021-08-20] VITALS (9 sets, daily range): BP systolic 110–127; BP diastolic 76–88; PULSE 59–115; RESP 18–20; TEMP 36.1–36.6; O2SAT 87–95
[2021-08-20] MEDS: Ipratropium 0.5 MG/2.5 ML SOLUTION INHALATION ×3 (03:04→10:44)
[2021-08-20] MEDS: dilTIAZem 60 MG Tablet PO (05:43)
[2021-08-20] MEDS: 0.9% Saline Lock 10 ML Syringe IV ×2 (05:44→09:21)
[2021-08-20] MEDS: Enoxaparin 120 MG/0.8 ML Syringe SC (09:22)
[2021-08-20] MEDS: Metoprolol Tartrate 100 MG Tablet PO (09:22)
[2021-08-20] MEDS: Azithromycin 250 MG Tablet 500 MG PO (09:22)
[2021-08-20] MEDS: Furosemide 40 MG/4 ML Vial IV (09:22)
[2021-08-20] MEDS: Aspirin 81 MG TAB.CHEW PO (09:22)
[2021-08-20 09:58] LABS: Absolute Neutrophil Count 8.6 X10^3/uL (2.0-7.7); Basophil# 0.01 X10^3/uL; Basophil% 0.1 % (0-1); Hemoglobin 18.7 g/dL (13.0-16.5); Lymphocyte % 5.2 % (19-41); Mean Corp Hgb Conc 31.4 g/dL (32-36); Mean Corpuscular Hgb 30.8 pg (27.0-32.0); Mean Corpuscular Volume 97.9 fL (80-94); Mean Platelet Vol. 9.6 fl (6.2-12.0); Monocyte# 0.39 X10^3/uL; Monocyte% 4.1 % (0-10); NRBC Flagged by Analyzer 0 % (0-5); Neutrophil # 8.63 X10^3/uL (2.7-7.7); POSITIVE DIFFERENTIAL YES; Platelet Count 195 K/mm3 (150-450); RBC Distribution Width CV 13.7 % (11.6-14.6); RBC Distribution Width SD 50.5 fl (35.1-43.9); Red Blood Count 6.08 M/mm3 (4.6-6.2); White Blood Count 9.6 K/mm3 (4.4-11.0)
[2021-08-20 10:02] LABS: Hematocrit 59.5 % (40-54)
[2021-08-20 10:04] LABS: Differential Indicated SCAN CRITERIA MET
[2021-08-20] MEDS: dilTIAZem CD 180 MG Capsule PO (10:27)
[2021-08-20 10:37] LABS: Anion Gap 4 (5-15); BUN 57 mg/dL (7-18); BUN/Creat Ratio 48.3 RATIO (10-20); Calcium,Total 9.2 mg/dL (8.5-10.1); Chloride 99 mmol/L (98-107); Creatinine, Serum 1.18 mg/dL (0.70-1.30); EST Glomerular Filtration Rate 66 mL/min (>60); Est Glom Filt Rate - Afr Amer 79 mL/min (>60); Estimated Creatinine Clearance 61.58 ml/min; Glucose 214 mg/dL (74-106); Potassium 4.6 mmol/L (3.5-5.1); Sodium Level 137 mmol/L (136-145)
[2021-08-20 10:55] LABS: Differential Comment SCANNED
--- NOTE | 2021-08-20 11:08 | PCM.DC ---
Discharge Instructions Diet Discharge Diet: 8 Cup Fluid Restriction and 2000 mg Sodium Diet Activity Discharge Activity: Return to Normal Activity and May Not Drive Dressing / Incision Call your doctor if you observe: Fever of 101 or Higher, Coldness, Increased Pain, Numbness or Tingling, Change in Color, Inability to urinate, Inability to have a bowel movement, Shortness of breath, Dizziness, Fainting spells, Swelling in the ankles, Chest pain, Prolonged hiccupping, Increased palpitations (irregular heartbeat) and Calf discomfort Follow Up Care Test Results: Test results from this visit will be discussed in further detail at your follow-up appointment, if applicable. Discharge Plan Admission Admit Date/Time: 08/15/21 19:24 Primary Reason for Your Visit: COPD and CHF exacerbation A. fib with RVR Attending Provider: Huan Lee Primary Care Provider: Magdi Lopez Consulting Providers: Travis Belle ; Candice Steele Instructions Patient Instructions: Understanding Atrial Fibrillation Discharge Orders/Prescriptions Prescriptions: New nicotine (polacrilex) 4 mg Gum 4 mg PO Q2H PRN PRN (Reason: Nicotine Craving) Qty: 0 RF: 0 nicotine 21 mg/24 hr Patch 24 Hour 21 mg transdermal DAILY Qty: 28 RF: 0 metoprolol tartrate 100 mg Tablet 100 mg PO BID Qty: 60 RF: 0 ipratropium bromide 0.02 % Solution 0.5 mg inhalation Q4H.RT PRN (Reason: shortness of breath or wheezing) Qty: 75 RF: 0 diltiazem HCl 180 mg Capsule,Extended Release 24hr 180 mg PO DAILY Qty: 30 RF: 2 aspirin 81 mg Tablet,Chewable 81 mg PO 0800 Qty: 30 RF: 2 atorvastatin 40 mg tablet 40 mg PO QHS Qty: 30 RF: 0 Eliquis 5 mg tablet 5 mg PO BID Qty: 60 RF: 1 Continued albuterol sulfate 90 mcg/actuation HFA aerosol inhaler 2 puff INHALATION Q4H PRN PRN (Reason: breathing) RF: 0 Trelegy Ellipta 100-62.5-25 mcg blister with device 1 ea INHALATION DAILY RF: 0 Referrals / Follow Up: Magdi Lopez MD [Primary Care Provider] - Within 1 Week Care Physician,No Primary [NON-STAFF] - Edgar Verdugo DO [STAFF PHYSICIAN] - Within 1 Month (FOR PFT and sleep study) Magdi Rosa MD [STAFF PHYSICIAN] - Within 1 Month (Chronic A fib) Disposition Disposition (needs filled in before D/C Order can be placed): Home, Self Care
--- NOTE | 2021-08-20 11:08 | PCM.DC.SUM ---
Providers Date of Admission: 08/15/21 Date of Discharge: 08/20/21 Primary Care Physician: Dr. Magdi Lopez MD Reason For Visit: COPD EXACERBATION Diagnosis Discharge Diagnosis (1) Acute exacerbation of chronic obstructive pulmonary disease: Status: Chronic Code(s): J44.1 - Chronic obstructive pulmonary disease with (acute) exacerbation (2) Hypoxia: Status: Acute Code(s): R09.02 - Hypoxemia Medications at Discharge Home Medications Trelegy Ellipta 1 ea INHALATION DAILY 08/15/21 albuterol sulfate 2 puff INHALATION Q4H PRN PRN 08/15/21 apixaban [Eliquis] 5 mg PO BID #60 tab 08/20/21 aspirin 81 mg PO 0800 #30 tab 08/20/21 atorvastatin 40 mg PO QHS #30 tab 08/20/21 diltiazem HCl 180 mg PO DAILY #30 cap 08/20/21 furosemide [Lasix] 40 mg PO BID #60 tab 08/20/21 ipratropium bromide 0.5 mg INHALATION Q4H.RT PRN #75 ml 08/20/21 metoprolol tartrate 100 mg PO BID #60 tab 08/20/21 nicotine 21 mg TRANSDERMAL DAILY #28 ea 08/20/21 nicotine (polacrilex) 4 mg PO Q2H PRN PRN #0 ea 08/20/21 prednisone 10 mg PO DAILY #30 tab 08/20/21 spironolactone 12.5 mg PO DAILY #30 tab 08/20/21 Hospital Course Summary of Care Provided Hospital Course: History of coronary artery status post 3 stents, COPD obstructive sleep apnea on home CPAP chronic cigarette smoking came to ED with 2-day history of progressive worsening of shortness of breath, wheezing, dyspnea at rest with productive cough. 1. Acute hypoxia secondary to Acute exacerbation of COPD/probable Acute exacerbation of heart failure with preserved EF , EF 65% Patient is on 4 L of oxygen, Chest x-ray showed mild vascular congestion with interstitial and edema, asymmetric parenchymal consolidation of the medial right lower lobe. The patient was managed with bronchodilator nebulization, IV Solu-Medrol, Lasix, azithromycin(stop date 08/19/21) home qualification oxygen shows 87% at rest on room air, 94% on 2 L at rest and 91% on 2 L of oxygen on ambulation. Patient is ambulatory in home and in the community and requires home oxygen with portability. Patient is discharged on tapering dose of prednisone, nebulization, Lasix. 2. Acute A. fib with RVR, patient with reported history of paroxysmal atrial fibrillation, rate controlled now. 2D echo shows EF of 65%, diastolic dysfunction in the 10 minutes, mildly enlarged left atrium, mild to moderate aortic stenosis Continue on metoprolol 100mg BID. Cardizem CD 180 mg daily started the prescription given for the same. Prescription given for Eliquis. 3. Acute allergic reaction, unclear inciting agents, improved Continue hydrocortisone cream, continue Solu-Medrol. Patient was discharged on tapering dose of 4. CAD s/p stents, continue on aspirin, not on statin 5. YON on CPAP 6. Nicotine dependence, on replacement 7. DVT prophylaxis -Lovenox SC. Discharge medication reconciliation done. Discharge follow-up instructions completed. Discharge process discussed with the patient and all questions were answered to patient's satisfaction. Follow-up with grades 1 thru 6 visiting teacher and roll plugger admission and discharge instruction Total time spent, exact 35 minutes on discharge meds reconciliation, examination, coordination of care with nurses and ancillary staff, review of imaging and blood test and discussion with the patient on follow-up instructions. Physical Exam Narrative Patient breathing gotten better. Comfortable no dyspnea at rest. Heart rate is controlled in the 80s still in A. fib. Patient also has bilateral lower extremity edema for several months. Physical exam General: Alert, Oriented x3, Cooperative, morbid obesity BMI 39.7 kg/m? HEENT: Atraumatic, PERRLA, EOMI, Normocephalic Oral: No Gingival or Mucosal Lesions/ Ulcerations Neck: Supple, No JVD, Negative Carotid Bruits Lungs: Air entry diminished in all lung owusu. Bilateral expiratory rhonchi. Mild hypoxia Cardiovascular: A. fib with RVR. Normal S1, Normal S2, No murmurs Abdomen: Bowel Sounds Present, Soft, Non Tender, Non-Distended : No renal angle tenderness. No suprapubic tenderness. Extremities: Bilateral lower leg pitting edema, Capillary Refill Less than 3 Seconds Skin: No rashes, No breakdown Musculoskeletal: No Tenderness to Palpation of Joints or Extremities Neurological: Cranial nerves II-XII grossly intact, DTR 2+/4 and Symmetrical, Neuro grossly intact Psych/Mental Status: Normal Affect, Appropriate Weight / BMI Weight Weight: 268 lb 8.368 oz Body Mass Index (BMI) 39.6 ABG / Lab / Microbiology Data Result Diagrams: 08/20/21 09:50 08/20/21 09:50 Laboratory: Laboratory Results - last 24 hr 08/19/21 05:45: Diff Path Review Reviewed 08/20/21 09:50: WBC 9.6, RBC 6.08, Hgb 18.7 H*, Hct 59.5 H, MCV 97.9 H, MCH 30.8, MCHC 31.4 L, RDW Std Deviation 50.5 H, RDW Coeff of Fuentes 13.7, Plt Count 195, MPV 9.6, Immature Gran % (Auto) 0.600, Neut % (Auto) 90.0 H, Lymph % (Auto) 5.2 L, [place] % (Auto) 4.1, Eos % (Auto) 0.0, Baso % (Auto) 0.1, Absolute Neuts (auto) 8.6 H, Absolute Lymphs (auto) 0.50 L, Nucleated RBC % 0, Differential Comment SCANNED, Diff Path Review May foll 08/20/21 09:50: Sodium 137, Potassium 4.6, Chloride 99, Carbon Dioxide 34.0 H, Anion Gap 4 L, BUN 57 H, Creatinine 1.18, Estim Creat Clear Calc 61.58, Est GFR (MDRD) Af Amer 79, Est GFR (MDRD) Non-Af 66, BUN/Creatinine Ratio 48.3 H, Glucose 214 H, Calcium 9.2 Microbiology: Microbiology 08/15/21 17:50 Nasal Secretion SARS-CoV-2 & FLU Antigen (Rapid) - Final Meaningful Use Info Meaningful Use Diagnoses (Choose all that apply): None applicable Discharge Plan Admission Admit Date/Time: 08/15/21 19:24 Primary Reason for Your Visit: COPD and CHF exacerbation A. fib with RVR Attending Provider: Huan Lee Primary Care Provider: Magdi Lopez Consulting Providers: Travis Belle ; Candice Steele Instructions Patient Instructions: Understanding Atrial Fibrillation Discharge Orders/Prescriptions Prescriptions: New nicotine (polacrilex) 4 mg Gum 4 mg PO Q2H PRN PRN (Reason: Nicotine Craving) Qty: 0 RF: 0 nicotine 21 mg/24 hr Patch 24 Hour 21 mg transdermal DAILY Qty: 28 RF: 0 metoprolol tartrate 100 mg Tablet 100 mg PO BID Qty: 60 RF: 0 ipratropium bromide 0.02 % Solution 0.5 mg inhalation Q4H.RT PRN (Reason: shortness of breath or wheezing) Qty: 75 RF: 0 diltiazem HCl 180 mg Capsule,Extended Release 24hr 180 mg PO DAILY Qty: 30 RF: 2 aspirin 81 mg Tablet,Chewable 81 mg PO 0800 Qty: 30 RF: 2 atorvastatin 40 mg tablet 40 mg PO QHS Qty: 30 RF: 0 Eliquis 5 mg tablet 5 mg PO BID Qty: 60 RF: 1 prednisone 10 mg tablet 10 mg PO DAILY Qty: 30 RF: 0 furosemide [Lasix] 40 mg tablet 40 mg PO BID Qty: 60 RF: 2 spironolactone 25 mg tablet 12.5 mg PO DAILY Qty: 30 RF: 0 Continued albuterol sulfate 90 mcg/actuation HFA aerosol inhaler 2 puff INHALATION Q4H PRN PRN (Reason: breathing) RF: 0 Trelegy Ellipta 100-62.5-25 mcg blister with device 1 ea INHALATION DAILY RF: 0 Referrals / Follow Up: Edgar Verdugo DO [STAFF PHYSICIAN] - Within 1 Month (FOR PFT and sleep study) Magdi Rosa MD [STAFF PHYSICIAN] - Within 1 Month (Chronic A fib) Magdi Lopez MD [Primary Care Provider] - Within 1 Week Care Physician,No Primary [NON-STAFF] - Disposition Disposition (needs filled in before D/C Order can be placed): Home, Self Care Charges/Coding Visit Charges Inpatient E&M: 63287 Disch Hosp
--- NOTE | 2021-08-20 11:50 | CASEMGMT ---
Addendum entered by Nori Hightower 08/20/21 12:49: Pt also to be sent home on Eliquis and med e-scribed to [facility] in [place]. Pt/ anxious to leave and are unable to wait for med to be run and this JA GIL to check co-pay. provided with Eliquis 30 day free trial card with instruction, voices understanding. Call to [facility] pharmacy after pt left and per tech, Eliquis co-pay is $47. Meagan PERES CM Original Note: Pt qualifies for 2L nc continuous home oxygen and order faxed to [facility] per preference with order for 2L thru cpap and nebulizer also. Call to Josue at [facility] to notify of referral and nebulizer, voices understanding. Taylor PERES updated that e-tank already here for pt when ready, voices understanding. Pt/ voice no further questions/concerns/needs. Pt still declines need for HHC and is still agreeable to [facility] Remote pt monitoring. Johnna aware of pt discharge. Meagan PERES CM
--- NOTE | 2021-08-20 12:45 | NURSING ---
Reviewed charting with Celeste Vasquez RN
[2021-08-22 09:28] LABS: Pathologist Review Reviewed
== END 2021-08-20 12:51 | disposition home or self-care (01) | DRG 190 ==
LOC: ED 19:28 → MS3 19:37 → PCU 08-17 13:08
PROVIDERS: Internal Medicine; Nurse Practitioner; Admitting Provider Hospitalist; Emergency Provider Emergency Medicine; PCP Family Medicine; Visit Provider Internal Medicine
DX: J44.1 Chronic obstructive pulmonary disease with (acute) exacerbation (principal); I50.31 Acute diastolic (congestive) heart failure; I48.0 Paroxysmal atrial fibrillation; E66.01 Morbid (severe) obesity due to excess calories; F17.200 Nicotine dependence, unspecified, uncomplicated; I25.10 Atherosclerotic heart disease of native coronary artery without angina pectoris; G47.33 Obstructive sleep apnea (adult) (pediatric); Z68.39 Body mass index [BMI] 39.0-39.9, adult; R09.02 Hypoxemia
CPT/HCPCS: 36415; 71045; 80048; 80053; 83880; 84439; 84443; 84481; 84484; 85025; 87428; 93005; 93306; 94640; 94667; 94668; 99251; 99285; 99406; Q9957; A4216; C8929; G0463; J1940

== ENCOUNTER → 2022-03-12 | Outpatient (CLI) | payer MEDICARE, SELFPAY ==
--- NOTE | 2022-03-12 09:30 | RAD_ITS ---
EXAM: XR LUMBOSACRAL SPINE, 4 OR 5 VIEWS CLINICAL INDICATION: PAIN TECHNIQUE: Frontal, lateral and bilateral oblique views of the lumbar spine. This report was created using [facility] report generation technology. COMPARISON: None. FINDINGS: VERTEBRAE: Loss of the normal lumbar lordosis. Mild levoscoliosis of the lumbar spine. DISC SPACES: Multilevel disc space narrowing and vertebral body hypertrophy. GASTROINTESTINAL TRACT: Normal bowel gas pattern. RAD/L/S Spine Min 4 Views IMPRESSION: Prominent diffuse spondylosis. Electronically Signed: Tyrese Nunez MD at 11:08 EST ,
== END | disposition home or self-care (01) ==
PROVIDERS: PCP Family Medicine; Referring Provider Family Medicine; Visit Provider Family Medicine
DX: M54.9 Dorsalgia, unspecified (principal)
CPT/HCPCS: 72110

== ENCOUNTER → 2022-04-18 | Outpatient (CLI) | payer MEDICARE, SELFPAY ==
[2022-04-18 18:07] LABS: Anion Gap 9 (5-15); BUN 23 mg/dL (7-18); BUN/Creat Ratio 20.4 RATIO (10-20); Calcium,Total 8.7 mg/dL (8.5-10.1); Chloride 94 mmol/L (98-107); Creatinine, Serum 1.13 mg/dL (0.70-1.30); EST Glomerular Filtration Rate 69 mL/min (>60); Est Glom Filt Rate - Afr Amer 83 mL/min (>60); Glucose 194 mg/dL (74-106); Sodium Level 137 mmol/L (136-145)
== END | disposition home or self-care (01) ==
PROVIDERS: PCP Family Medicine; Referring Provider Family Medicine; Visit Provider Family Medicine
DX: R60.9 Edema, unspecified (principal)
CPT/HCPCS: 36415; 80048

== ENCOUNTER → 2022-10-02 | Outpatient (CLI) | payer MEDICARE, SELFPAY ==
[2022-10-02 12:51] LABS: Anion Gap 6 (5-15); BUN 24 mg/dL (7-18); BUN/Creat Ratio 16.9 RATIO (10-20); Calcium,Total 8.9 mg/dL (8.5-10.1); Chloride 101 mmol/L (98-107); Cholesterol 135 mg/dL (200); Creatinine, Serum 1.42 mg/dL (0.70-1.30); EST Glomerular Filtration Rate 53 mL/min (>60); Est Glom Filt Rate - Afr Amer 64 mL/min (>60); Glucose 109 mg/dL (74-106); High Density Lipoprotein 22 mg/dL; PSA,Total - Annual Screen 2.36 ng/mL (0.00-4.00); Potassium 4.3 mmol/L (3.5-5.1); Sodium Level 139 mmol/L (136-145); Triglycerides 205 mg/dL; Very Low Density Lipoprotein 41 mg/dL (5-40)
== END | disposition home or self-care (01) ==
LOC: MFPLAB 10:14
PROVIDERS: PCP Family Medicine; Visit Provider Family Medicine
DX: Z00.00 Encounter for general adult medical examination without abnormal findings (principal); Z13.6 Encounter for screening for cardiovascular disorders; Z12.5 Encounter for screening for malignant neoplasm of prostate
CPT/HCPCS: 36415; 80048; 80061; 84153; G0103